=== PATIENT | female | born 1945 | race Caucasian/White ===

== ENCOUNTER 2017-09-07 12:16 | Emergency (ER) | payer MEDICARE ==
[~2017-09-07] VITALS: Ht 165.1 cm; Wt 84.0 kg
[2017-09-07 12:23] VITALS: PULSE 72; RESP 16; TEMP 98.3; O2SAT 97
[2017-09-07 12:50] VITALS: BP 255/114
[2017-09-07] MEDS ORDERED: cloNIDine HCL 0.1 MG TAB PO ONE ×2 (13:30→15:00)
--- NOTE | 2017-09-07 13:32 | PD ---
HPI Chief Complaint: Hypertension Time Seen by Provider: 13:00 Travel History International Travel<30 days: No Contact w/Intl Traveler<30days: No Traveled to known affect area: No History of Present Illness HPI This 8-year-old female presents with complaint of high blood pressure. She developed a visual disturbance several weeks ago. She went to a I doctor knows referred to a retinal specialist. She had some injections of her eyeball and was told that she needed prompt treatment of her hypertension. She has never been treated for hypertension. In fact she never goes to doctors and has not had a blood pressure check. She says she has not seen a physician since she gave to her child's. She does not suffer from headaches or shortness of breath. She is on no medications. She does not smoke. PFSH Past Medical History Medical History: Denies Significant Hx Hx Anticoagulant Therapy: No Diabetes: No Tetanus Vaccination: > 5 Years Influenza Vaccination: No ?: Not Menopausal: Yes Past Surgical History Surgical History: No Previous Surgery Social History Alcohol Use: No Tobacco Use: No Allergies-Medications (Allergen,Severity, Reaction): Coded Allergies: Penicillins (Verified Allergy, Severe, 09/07/17) Reported Meds & Prescriptions Reported Meds & Active Scripts Active No Active Prescriptions or Reported Medications Review of Systems General / Constitutional: No: Fever, Chills Eyes: Positive: Blurred Vision, No: Diploplia HENT: No: Headaches, Vertigo Cardiovascular: No: Chest Pain or Discomfort, Palpitations Respiratory: No: Cough, Shortness of Breath Gastrointestinal: No: Vomiting, Diarrhea Genitourinary: No: Frequency, Dysuria Musculoskeletal: No: Myalgias, Arthralgias Skin: No Rash, No Itching Physical Exam Narrative GENERAL: Well-developed female. Initial blood pressure is 232/94 SKIN: Focused skin assessment warm/dry. HEAD: Atraumatic. Normocephalic. EYES: Pupils equal and round. No scleral icterus. No injection or drainage. ENT: No nasal bleeding or discharge. Mucous membranes pink and moist. NECK: Trachea midline. No JVD. CARDIOVASCULAR: Regular rate and rhythm. No murmur appreciated. RESPIRATORY: No accessory muscle use. Clear to auscultation. Breath sounds equal bilaterally. GASTROINTESTINAL: Abdomen soft, non-tender, nondistended. Hepatic and splenic margins not palpable. MUSCULOSKELETAL: No obvious deformities. No clubbing. No cyanosis. No edema. NEUROLOGICAL: Awake and alert. No obvious cranial nerve deficits. Motor grossly within normal limits. Normal speech. PSYCHIATRIC: Appropriate mood and affect; insight and judgment normal. Data Data Last Documented VS Vital Signs Date Time Temp Pulse Resp B/P (MAP) Pulse Ox O2 Delivery O2 Flow Rate FiO2 09/07/17 12:50 255/114 (161) 09/07/17 12:23 98.3 72 16 97 Orders Orders Complete Blood Count With Diff (09/07/17 13:30) Basic Metabolic Panel (Bmp) (09/07/17 13:30) Clonidine (Catapres) (09/07/17 13:30) Clonidine (Catapres) (09/07/17 15:00) Labs Laboratory Tests Test 09/07/17 13:55 White Blood Count 9.2 TH/MM3 Red Blood Count 4.57 MIL/MM3 Hemoglobin 13.5 GM/DL Hematocrit 40.3 % Mean Corpuscular Volume 88.1 FL Mean Corpuscular Hemoglobin 29.5 PG Mean Corpuscular Hemoglobin Concent 33.5 % Red Cell Distribution Width 13.1 % Platelet Count 259 TH/MM3 Mean Platelet Volume 8.3 FL Neutrophils (%) (Auto) 73.0 % Lymphocytes (%) (Auto) 21.3 % Monocytes (%) (Auto) 4.2 % Eosinophils (%) (Auto) 1.0 % Basophils (%) (Auto) 0.5 % Neutrophils # (Auto) 6.7 TH/MM3 Lymphocytes # (Auto) 2.0 TH/MM3 Monocytes # (Auto) 0.4 TH/MM3 Eosinophils # (Auto) 0.1 TH/MM3 Basophils # (Auto) 0.0 TH/MM3 CBC Comment DIFF FINAL Differential Comment Blood Urea Nitrogen 22 MG/DL Creatinine 0.86 MG/DL Random Glucose 97 MG/DL Calcium Level 9.1 MG/DL Sodium Level 139 MEQ/L Potassium Level 3.8 MEQ/L Chloride Level 107 MEQ/L Carbon Dioxide Level 25.0 MEQ/L Anion Gap 7 MEQ/L Estimat Glomerular Filtration Rate 65 ML/MIN [facility] Medical Decision Making Medical Screen Exam Complete: Yes Emergency Medical Condition: Yes Medical Record Reviewed: Yes Differential Diagnosis Differential includes hypertension, essential hypertension Narrative Course I ordered lab work and CBC and basic metabolic profile are normal. He was given clonidine with borderline response. I'm going to release her on lisinopril 20 mg once daily. I have stressed the importance of follow-up Diagnosis Primary Impression: Hypertension Scripts Lisinopril (Lisinopril) 20 Mg Tab 20 MG PO DAILY, #30 TAB 0 Refills Prov: Rommel Frank MD 09/07/17 Disposition: 01 DISCHARGE HOME Condition: Stable Rommel Frank MD Sep 07, 2017 13:32
[2017-09-07 14:10] LABS: AUTOMATED NEUTROPHIL # 6.7 TH/MM3 (1.8-7.7); BASOPHIL % 0.5 % (0.0-2.0); EOSINOPHIL # 0.1 TH/MM3 (0-0.4); HEMATOCRIT 40.3 % (35.0-46.0); HEMOGLOBIN 13.5 GM/DL (11.6-15.3); LYMPH % 21.3 % (9.0-44.0); MEAN CELL VOLUME 88.1 FL (80.0-100.0); MEAN CORPUSCULAR HEMOGLOBIN 29.5 PG (27.0-34.0); MEAN CORPUSCULAR HGB CONC 33.5 % (32.0-36.0); MEAN PLATELET VOLUME 8.3 FL (7.0-11.0); MONO % 4.2 % (0.0-8.0); MONOCYTE # 0.4 TH/MM3 (0-0.9); PLATELET COUNT 259 TH/MM3 (150-450); RED BLOOD COUNT 4.57 MIL/MM3 (4.00-5.30); RED CELL DISTRIBUTION WIDTH 13.1 % (11.6-17.2); WHITE BLOOD COUNT 9.2 TH/MM3 (4.0-11.0)
[2017-09-07 14:20] LABS: CALCIUM 9.1 MG/DL (8.5-10.1)
[2017-09-07 14:24] LABS: CREATININE 0.86 MG/DL (0.50-1.00)
[2017-09-07 14:52] VITALS: BP_SYST 216; BP_DIAS 101; BP_DIAS 99; PULSE 60; RESP 18; O2SAT 95
[2017-09-07] MEDS ORDERED: LISI-515 PO (14:54)
[2017-09-07 15:00] VITALS: BP 186/88
== END 2017-09-07 15:31 | disposition home or self-care (01) ==
LOC: PHED 12:16
DX: I10 Essential (primary) hypertension (principal)
CPT/HCPCS: 80048; 85025; 99283